=== PATIENT | male | born 1985 | race African-American/Black ===

== ENCOUNTER → 2021-04-17 08:29 | Outpatient (CLI) | payer OTHER, SELFPAY ==
[2021-04-17 18:39] LABS: SARS-CoV-2 RNA PCR Negative
== END ==
PROVIDERS: PCP Emergency Medicine; Visit Provider Nurse Practitioner Adult Health
DX: Z20.822 Contact with and (suspected) exposure to COVID-19 (principal)
CPT/HCPCS: C9803; U0003; U0005

== ENCOUNTER → 2021-06-14 02:23 | Outpatient (CLI) | payer OTHER, SELFPAY ==
[2021-06-14 23:19] LABS: SARS-CoV-2 RNA PCR Positive
== END ==
PROVIDERS: PCP Emergency Medicine; Visit Provider Nurse Practitioner Adult Health
DX: U07.1 COVID-19 (principal)
CPT/HCPCS: C9803; U0003; U0005

== ENCOUNTER 2021-09-05 09:15 | Outpatient (RCR) | payer OTHER, SELFPAY | END 2021-10-13 14:21 | disposition home or self-care (01) | LOC: ANHDMC 09:15 | PROVIDERS: PCP Emergency Medicine; Visit Provider Emergency Medicine | DX: E11.9 Type 2 diabetes mellitus without complications (principal); Z71.89 Other specified counseling | CPT/HCPCS: G0108 ==

== ENCOUNTER 2021-11-14 09:58 | Outpatient (RCR) | payer OTHER, SELFPAY | END 2022-02-10 09:44 | disposition home or self-care (01) | LOC: ANHDMC 09:58 | PROVIDERS: PCP Emergency Medicine; Visit Provider Emergency Medicine | DX: E11.9 Type 2 diabetes mellitus without complications (principal); Z71.89 Other specified counseling | CPT/HCPCS: G0108 ==